=== PATIENT | female | born 1965 | race Hispanic/Latino ===

== ENCOUNTER 2017-01-14 08:56 | Emergency (ER) | payer OTHER ==
[~2017-01-14] VITALS: Ht 157.5 cm; Wt 75.0 kg
[~2017-01-14 08:56] MED LIST: ACETTAB3 OR; CYCLOBENZAPR10 MG PO; DICLOFEN POT50 MG PO; FLEXERIL5 MG PO; LORTAB 5 OR; LORTAB 5/3255 MG PO; METHOCARBAM500 MG PO; NO HOME MEDS; ROXICET1 TAB PO; UNKNOWN MEDS
[2017-01-14 10:09] VITALS: BP 146/67
== END 2017-01-14 10:03 | disposition home or self-care (01) | DRG 603 ==
LOC: ED 08:56
PROC: 0H9HXZZ Drainage of Right Upper Leg Skin, External Approach (ICD-10-PCS; principal; 2017-01-14)
DX: L02.415 Cutaneous abscess of right lower limb (principal); F17.210 Nicotine dependence, cigarettes, uncomplicated; L72.0 Epidermal cyst

== ENCOUNTER 2017-01-16 11:10 | Emergency (ER) | payer OTHER ==
[~2017-01-16] VITALS: Ht 157.5 cm; Wt 70.0 kg
[2017-01-16 11:47] VITALS: BP 133/83
== END 2017-01-16 11:59 | disposition home or self-care (01) | DRG 603 ==
LOC: ED 11:10
DX: L02.415 Cutaneous abscess of right lower limb (principal); E05.90 Thyrotoxicosis, unspecified without thyrotoxic crisis or storm

== ENCOUNTER 2017-03-08 10:37 | Observation (INO) | payer OTHER ==
[~2017-03-08] VITALS: Ht 157.5 cm; Wt 69.2 kg
--- NOTE | 2017-03-08 10:37 | NUR ---
TO ROOM 6 VIA STRETCHER BY EMS. ALERT. COOPERATIVE
--- NOTE | 2017-03-08 10:55 | NUR ---
PT STATES FEELS MUCH BETTER NOW, WAS OVER WORKING AT [employer] AND THOUGHT SHE WAS GOING TO PASS OUT, WITH MID CENTER CHEST PAIN
[2017-03-08 11:15] LABS: HEMATOCRIT 45.1 % (37.0-47.0); HEMOGLOBIN 15.1 g/dl (12.0-16.0); IMMATURE GRANULOCYTES 0.2 % (0.0-1.0); MEAN CELL VOLUME 90.7 fL CALC (80.0-100.0); MEAN CORPUSCULAR HGB 30.4 pG CALC (26.0-32.0); MEAN CORPUSCULAR HGB CONC 33.5 g/L CALC (32.0-36.0); NEUT# 3.19 thou/uL (2.00-7.15); RED BLOOD COUNT 4.97 mill/uL (4.20-5.60)
[2017-03-08 11:47] LABS: ALBUMIN 4.4 g/dL (3.2-5.0); ALKALINE PHOSPHATASE 126 u/l (38-126); ANION GAP 16 (6-22 (CALC)); BILIRUBIN, TOTAL 0.5 mg/dL (0.0-1.4); BUN 12 mg/dL (7-17); BUN/CREATININE RATIO 21 (12-20 (CALC)); CALCIUM 9.6 mg/dL (8.4-10.2); CARBON DIOXIDE 22 mmol/l (22-30); CHLORIDE 107 mmol/l (95-108); CREATININE 0.5 mg/dL (0.5-1.0); GFR > 60 ML/MIN (>=60 (CALC)); GFR FOR AFR.AMER. > 60 ML/MIN (>=60 (CALC)); GLUCOSE 88 mg/dL (65-105); POTASSIUM 3.7 mmol/l (3.5-5.1); SGOT/AST 25 u/l (14-36); SGPT/ALT 42 u/l (9-52); SODIUM 142 mmol/l (137-146); TOTAL PROTEIN 8.1 g/dL (6.3-8.2)
[2017-03-08 11:59] LABS: MYOGLOBIN 26 ng/mL (0 - 62)
--- NOTE | 2017-03-08 12:08 | NUR ---
SBAR PRINTED TO FLOOR
--- NOTE | 2017-03-08 12:20 | NUR ---
PT HAS FAMILY AT BEDSIDE, NO MEDICATIONS ORDERS FROM AT THIS TIME FOR PAIN.
--- NOTE | 2017-03-08 12:21 | NUR ---
PT STATES SHE TAKES SOME TYROID MEDICATIONS BUT DOESNT KNOW THE NAME OR DOSAGE
--- NOTE | 2017-03-08 13:16 | NUR ---
CALLED TO MED SURG FOR REPORT, NURSE NOT AVAILABLE WILL RETURN CALL SOON POSSIBLE
--- NOTE | 2017-03-08 13:41 | NUR ---
ATTEMPTED TO CALL REPORT. NURSE IS EATING LUNCH- TO CALL BACK FOR REPORT
--- NOTE | 2017-03-08 14:03 | NUR ---
CALLED TO GIVE REPORT TO MED SURG NURSE , NURSE WILL CALL BACK, ADVISED PT THAT WE WILL BE TAKING HER UP TO ROOM SOON I GIVE REPORT TO MED SURG. REMAINS CHEST PAIN FREE AT THIS TIME, VITAL SIGNS STABLE. TELELMETRY APPLIED, PT IS READY TO GO.
--- NOTE | 2017-03-08 14:11 | NUR ---
REPORT GIVEN TO MED SURG NURSE. PT TAKEN PER W/C TO FLOOR
[2017-03-08 14:33] VITALS: BP 142/45
--- NOTE | 2017-03-08 14:43 | NUR ---
REPORT RECEIVED FROM JOSE LUIS IN ED, PT ARRIVED UN UNIT VIA STRETCHER @ 1420, ALERT AND ORIENTED X 3, C/O CHEST PRESSURE AT THIS TIME. SETTLED IN BED, ORIENTED TO ROOM AND CALL PHILLIPS, TELE MONITOR IN PLACE. WILL CONTINUE TO MONITOR AND ADDRESS NEEDS.
--- NOTE | 2017-03-08 16:25 | NUR ---
C/O MIDSTERNAL PRESSURE PAIN @ 10/02 AT THIS TIME, MANAGER MUTUAL [employer]D NOTIFIED, WROTE ORDERS.
[2017-03-08 19:07] VITALS: BP 140/62
--- NOTE | 2017-03-08 20:24 | NUR ---
PT IN BED A/O X3, RESPIRTAIONS EVEN AND UNLABORED. ADMIST TO MIDSTERNAL PAIN 10/02, MEDICATED WITH LORTAB AT THIS TIME. SNACK PROVIDED. CALL LIGHT IN REACH. WILL CONTINUE TO MONITOR.
[2017-03-09 00:05] VITALS: BP 104/65
--- NOTE | 2017-03-09 00:20 | NUR ---
TROPONIN DRAWN BY DISABILITY AIDE, PT TOLERATED WELL. DENIES CHEST PAIN AT THIS TIME. CALL LIGHT IN REACH.
[2017-03-09 04:19] VITALS: BP 121/59
--- NOTE | 2017-03-09 06:10 | NUR ---
MORNING BLOOD WORK DRAWN BY MEDICAL DOSIMETRIST, TOLERATED WELL.
[2017-03-09 06:49] LABS: CALCULATED LDLCHOLESTEROL 107 mg/dL (62-129 (CALC)); CHOLESTEROL HDL RATIO 4.5 (<4.4 (CALC)); HDL CHOLESTEROL 41 mg/dL (>=40); TOTAL CHOLESTEROL 187 mg/dl (0-199); TOTAL TRIGLYCERIDES 194 mg/dl (30-149); VLDL CHOLESTROL 39 mg/dl (2-49 (CALC))
--- NOTE | 2017-03-09 07:00 | NUR ---
RECEIVED BEDSIDE REPORT FROM SARAH DELGADO. SITTING IN BED TALKING ON PHONE. RESPS EVEN AND UNLABORED ON ROOM AIR, TELE MONITOR IN PLACE. DENIES PAIN OR DISCOMFORT AT THIS TIME. PLAN OF CARE DISCUSSED. SAFETY PRECAUTIONS REINFORCED. BED IN LOWEST POSITION WITH WHEELS LOCKED. CALL LIGHT WITHIN REACH. ENCOURAGED PT TO CALL FOR ANY NEEDS.
[2017-03-09 07:58] VITALS: BP 121/70
[2017-03-09 11:18] VITALS: BP 112/45
--- NOTE | 2017-03-09 12:00 | NUR ---
SITTING IN BED EATING LUNCH. VISITOR AT BEDSIDE. MEDICATED WITH GI COCKTAIL PO FOR C/O EPIGASTRIC PAIN. CALL LIGHT WITHIN REACH. WILL CONTINUE TO MONITOR.
--- NOTE | 2017-03-09 13:15 | NUR ---
DR OZUNA IN WITH PT, NEW ORDERS RECEIVED.
[2017-03-09] MEDS ORDERED: METHIMAZOLE10 MG PO (14:14)
[2017-03-09] MEDS ORDERED: TRAMADOL HCL50 MG PO (14:15)
[2017-03-09] MEDS ORDERED: IBUPROFEN600 MG PO (14:15)
--- NOTE | 2017-03-09 15:20 | NUR ---
MEDICATED WITH MOTRIN 600MG PO FOR C/O 11/01 SUB STERNAL PAIN. PO FLUIDS OFFERED. CALL LIGHT WITHIN REACH. WILL CONTINUE TO MONITOR.
--- NOTE | 2017-03-09 16:18 | NUR ---
Discharge instructions given. Patient verbalizes understanding of same. Discharged in stable condition via Wheelchair to Home with family. All belongings sent with pt.
== END 2017-03-09 16:10 | disposition home or self-care (01) | DRG 313 ==
LOC: ED 10:37 → ED-I 11:58 → ED 12:17 → MS2 12:18
PROVIDERS: Emergency Medicine; ADMIT Internal Medicine; ATTEND Internal Medicine
DX: R07.89 Other chest pain (principal); R55 Syncope and collapse; E05.90 Thyrotoxicosis, unspecified without thyrotoxic crisis or storm; G89.29 Other chronic pain; M54.9 Dorsalgia, unspecified; E78.5 Hyperlipidemia, unspecified; K21.9 Gastro-esophageal reflux disease without esophagitis
CPT/HCPCS: G0378

== ENCOUNTER 2017-10-12 12:23 | Emergency (ER) | payer OTHER ==
[~2017-10-12] VITALS: Ht 157.5 cm; Wt 76.6 kg
[~2017-10-12 12:23] MED LIST changes: +IBUPROFEN600 MG PO; +METHIMAZOLE10 MG PO; +TRAMADOL HCL50 MG PO
[2017-10-12 14:18] VITALS: BP 123/77
[2017-10-12] MEDS ORDERED: MOTRIN400 MG PO (14:21)
== END 2017-10-12 14:20 | disposition home or self-care (01) | DRG 556 ==
LOC: ED 12:23
PROC: 2W3JX1Z Immobilization of Right Finger using Splint (ICD-10-PCS; principal; 2017-10-12)
DX: M25.541 Pain in joints of right hand (principal); S63.632A Sprain of interphalangeal joint of right middle finger, initial encounter; W22.09XA Striking against other stationary object, initial encounter; Y93.G9 Activity, other involving cooking and grilling; Y92.89 Other specified places as the place of occurrence of the external cause